=== PATIENT | female | born 1990 | race African-American/Black ===

== ENCOUNTER 2022-01-17 07:45 | Emergency (ER) | payer MEDICAID, SELFPAY ==
[2022-01-17] VITALS (12 sets, daily range): BP systolic 118–179; BP diastolic 78–106; PULSE 79–127; RESP 16–20; TEMP 36.2–36.5; O2SAT 96–99; BMI 37.3
--- NOTE | 2022-01-17 08:05 | EX.ED.VIS.PS ---
HPI HPI - Psych History of Present Illness Chief Complaint: Mental Health Narrative Narrative: 31-year-old female brought in by [employer] police, pink slipped, secondary to psychosis and inability to care for self. They found her wandering around outside in a T-shirt and 30 degree weather. She states that someone was trying to harm her and her friend, but her friend ran away. Police report that they called her mother who has not seen her in a week. Reportedly, in discussion with police, patient is known to have schizophrenia and manic episodes. History and physical is limited secondary to her neida and psychosis. She denies any suicidal ideation or homicidal ideation. She is paranoid and thinks that someone is out to harm her and kill her. [facility] Medical History Neida Allergy/AdvReac Type Severity Reaction Status Date / Time No Known Allergies Allergy Verified 01/17/22 07:57 Social History Smoking Status: Current every day smoker tobacco type: cigarettes ROS ROS ED ROS Narrative Mildly limited secondary to psychosis. Constitutional: No fever, no chills. HEENT: No sore throat. No neck pain. No loss of vision. No rhinorrhea. Cardiovascular: No chest pain. No palpitations. No pedal edema. Respiratory: No cough, no shortness of breath. Abdominal: No abdominal pain. No nausea. No vomiting. Genitourinary: No dysuria. No hematuria. Musculoskeletal: No myalgias. No arthralgias. Neurologic: No headaches. No dizziness. No lightheadedness. Skin: No rash. No change in color. Psychiatric: No depression. No anxiety. Denies suicidal ideation or homicidal ideation. Thinks someone named [place] is trying to hurt her and kill her and her friend. EXAM Physical Exam Narrative Exam Narrative: Afebrile. Vital signs noted. HEENT: Normocephalic. Atraumatic. PERRL, EOMI. Neck soft and supple. No point tenderness or step off. Chapped lips. Cardiovascular: Regular rate and rhythm. No murmurs, rubs, or gallops appreciated. Respiratory: No tachypnea. Lungs clear to auscultation bilaterally. Gastrointestinal: Abdomen soft, nontender, with normoactive bowel sounds. No rebound or guarding. Neurological: Awake. Alert. Nonfocal, nonlateralizing. Skin: No rash. Normal color. No pallor. Musculoskeletal: No pedal edema. Full range of motion extremities. Psychiatric: Mild neida. Flight of ideas. No suicidal ideation. Const Vital Signs: 01/17/22 07:48 01/17/22 08:48 01/17/22 09:03 Temperature 97.1 F L Temperature Source Temporal Pulse Rate 127 H Respiratory Rate 20 H 16 18 Blood Pressure 154/106 H Blood Pressure Mean 122 Pulse Ox 99 Oxygen Delivery Method Room Air 01/17/22 10:00 01/17/22 11:09 01/17/22 12:15 Temperature Temperature Source Pulse Rate 110 H Respiratory Rate 16 18 16 Blood Pressure 128/96 H Blood Pressure Mean 106 Pulse Ox 96 Oxygen Delivery Method Room Air 01/17/22 13:47 Temperature Temperature Source Pulse Rate 79 Respiratory Rate 16 Blood Pressure 179/86 H Blood Pressure Mean 117 Pulse Ox 96 Oxygen Delivery Method Room Air MDM MDM MDM Narrative Medical decision making narrative: Medical clearance labs were obtained. Police felt that she is unable to care for herself as she is wandering around outside without a coat in below freezing weather. Medical screening labs are remarkable for hemoglobin of 11.9, WBC count of 15 which I think is nonspecific. Potassium slightly low at 3.0. This will be replaced orally. Creatinine slightly elevated at 1.17 with a normal BUN of 8. LFTs show an AST of 38 and an ALT of 78. Ethyl alcohol is negative at less than 3. Urine test is negative. Urine for drugs of abuse positive for amphetamines, MDMA, and cannabinoids. Patient was acutely psychotic and required Geodon 20 mg intramuscularly after her analysis by crisis who agreed that the patient requires placement for her acute psychosis and paranoia. She is currently pending placement in a psychiatric facility. Patient has been accepted at [facility]. She will be transferred there. Patient is in stable condition. Lab Data Attestation: I reviewed the patient's lab results. Labs: Laboratory Results - last 24 hr 01/17/22 01/17/22 01/17/22 08:25 08:25 08:25 WBC 15.0 H RBC 5.23 Hgb 11.9 L Hct 37.3 MCV 71.3 L MCH 22.8 L MCHC 31.9 L RDW Std Deviation 36.3 RDW Coeff of Ammy 14.5 Plt Count 383 MPV 12.4 H Immature Gran % (Auto) 0.400 Neut % (Auto) 78.3 H Lymph % (Auto) 13.0 L [place] % (Auto) 7.5 Eos % (Auto) 0.5 Baso % (Auto) 0.3 Absolute Neuts (auto) 11.8 H Absolute Lymphs (auto) 1.95 Nucleated RBC % 0 Sodium 138 Potassium 3.0 L Chloride 104 Carbon Dioxide 24.0 Anion Gap 10 BUN 8 Creatinine 1.17 H Estim Creat Clear Calc 74.14 Est GFR (MDRD) Af Amer 70 Est GFR (MDRD) Non-Af 58 L BUN/Creatinine Ratio 6.8 L Glucose 146 H Calcium 9.7 Total Bilirubin 0.80 AST 38 H ALT 78 H Alkaline Phosphatase 125 H Total Protein 8.9 H Albumin 3.9 Globulin 5.0 H Albumin/Globulin Ratio 0.8 L Urine Test Urine Opiates Screen Urine Methadone Screen Ur Barbiturates Screen Ur Phencyclidine Scrn Ur Amphetamines Screen MDMA (Ecstasy) Screen U Benzodiazepines Scrn Urine Cocaine Screen U Cannabinoids Screen Ur Drug Screen Comment Ethyl Alcohol < 3.0 01/17/22 01/17/22 09:55 09:55 WBC RBC Hgb Hct MCV MCH MCHC RDW Std Deviation RDW Coeff of Ammy Plt Count MPV Immature Gran % (Auto) Neut % (Auto) Lymph % (Auto) [place] % (Auto) Eos % (Auto) Baso % (Auto) Absolute Neuts (auto) Absolute Lymphs (auto) Nucleated RBC % Sodium Potassium Chloride Carbon Dioxide Anion Gap BUN Creatinine Estim Creat Clear Calc Est GFR (MDRD) Af Amer Est GFR (MDRD) Non-Af BUN/Creatinine Ratio Glucose Calcium Total Bilirubin AST ALT Alkaline Phosphatase Total Protein Albumin Globulin Albumin/Globulin Ratio Urine Test Negative Urine Opiates Screen NEGATIVE Urine Methadone Screen NEGATIVE Ur Barbiturates Screen NEGATIVE Ur Phencyclidine Scrn NEGATIVE Ur Amphetamines Screen POSITIVE H MDMA (Ecstasy) Screen POSITIVE H U Benzodiazepines Scrn NEGATIVE Urine Cocaine Screen NEGATIVE U Cannabinoids Screen POSITIVE H Ur Drug Screen Comment Ethyl Alcohol Discharge Plan Triage Chief Complaint: Mental Health ED Provider: Gavin Pak Dx/Rx/DC Orders Clinical Impression: Psychosis, Paranoia, Hypokalemia Primary Care Provider: Care Physician,No Primary Referrals: NOT,DEFINED [Non-Staff] - Disposition Disposition: Psychiatric Hospital or Unit Discharge Location: [facility]
[2022-01-17 08:32] LABS: Absolute Lymphocyte Count 1.95 X10^3/uL (0.83-4.51); Absolute Neutrophil Count 11.8 X10^3/uL (2.0-7.7); Basophil# 0.04 X10^3/uL; Basophil% 0.3 % (0-1); Eosinophil# 0.07 X10^3/uL; Eosinophils% 0.5 % (0-5); Hematocrit 37.3 % (37-47); Hemoglobin 11.9 g/dL (12.0-15.0); Lymphocyte # 1.95 X10^3/ul (0.83-4.51); Mean Corp Hgb Conc 31.9 g/dL (32-36); Mean Corpuscular Hgb 22.8 pg (27.0-32.0); Mean Corpuscular Volume 71.3 fL (81-99); Mean Platelet Vol. 12.4 fl (6.2-12.0); Monocyte# 1.13 X10^3/uL; Monocyte% 7.5 % (0-10); NRBC Flagged by Analyzer 0 % (0-5); Neutrophil # 11.76 X10^3/uL (2.7-7.7); Neutrophil % 78.3 % (47-70); Platelet Count 383 K/mm3 (150-450); RBC Distribution Width CV 14.5 % (11.6-14.6); RBC Distribution Width SD 36.3 fl (35.1-43.9); Red Blood Count 5.23 M/mm3 (4.2-5.4)
[2022-01-17 08:49] LABS: ALB/GLOB Ratio 0.8 RATIO (0.9-2.4); AST(SGOT) 38 U/L (15-37); Alanine Aminotransfer ALT/SGPT 78 U/L (13-56); Albumin, Serum 3.9 g/dL (3.2-5.0); Alkaline Phosphatase 125 U/L (45-117); Anion Gap 10 (5-15); BUN 8 mg/dL (7-18); BUN/Creat Ratio 6.8 RATIO (10-20); Calcium,Total 9.7 mg/dL (8.5-10.1); Chloride 104 mmol/L (98-107); Creatinine, Serum 1.17 mg/dL (0.55-1.02); EST Glomerular Filtration Rate 58 mL/min (>60); Est Glom Filt Rate - Afr Amer 70 mL/min (>60); Estimated Creatinine Clearance 74.14 ml/min; Glucose 146 mg/dL (74-106); Protein, Total 8.9 g/dL (6.4-8.2); Sodium Level 138 mmol/L (136-145)
--- NOTE | 2022-01-17 09:01 | ED.RN ---
PT AGITATED. SITTING IN BED RESTLESSLY MOVING ARMS AND LEGS AROUND. PT SHOUTING TO A MAN IN HER ROOM. AND TALKING WITH PEOPLE WHO ARE NOT PRESENT. PT GIVEN WATER TO DRINK, MEAL TRAY OFFERED BUT PT REPORTS THAT SHE IS NOT HUNGRY.
[2022-01-17 09:04] LABS: Alcohol, Blood (Medical)-Serum < 3.0 mg/dL
--- NOTE | 2022-01-17 10:00 | ED.RN ---
PT REPORTS, I HAVE A SHY BLADDER. SHE ATTEMPTS A URINE SAMPLE BUT IS UNSUCCESSFUL. PT REQUESTS TO BE STRAIGHT CATHED. PT PLACED IN GOWN STRAIGHT CATH COMPLETED. URINE SAMPLE PENDING.
[2022-01-17 10:13] LABS: Internal QC Validated? YES +Cl - CLEAR BKGD; Pregnancy, Urine Negative Negative
[2022-01-17] MEDS: Ziprasidone IM 20 MG/ML VIAL IM (10:36)
[2022-01-17 10:38] LABS: Amphetamine Urine VISTA POSITIVE (<1000 ng/mL); Barbiturate Urine VISTA NEGATIVE (< 200 ng/mL); Benzodiazepine Urine VISTA NEGATIVE (< 200 ng/mL); Cocaine Urine VISTA NEGATIVE (< 300 ng/mL); Ecstacy Urine VISTA POSITIVE (< 500 ng/mL); Methadone Urine VISTA NEGATIVE (< 300 ng/mL); PCP Urine VISTA NEGATIVE (< 25 ng/mL); THC Urine VISTA POSITIVE (< 50 ng/mL); Vista UDS pH Range 5
--- NOTE | 2022-01-17 10:58 | ED.RN ---
PT GIVEN JULITA, CONTINUES TO SHOUT AND TALK TO NON VISIBLE BEINGS IN ROOM.
[2022-01-17] MEDS: Potassium Chloride Oral Tablet 20 MEQ 60 MEQ PO (15:24)
--- NOTE | 2022-01-17 16:33 | NURSING ---
CALLED [facility], ETA IS NOW 1533
--- NOTE | 2022-01-17 17:55 | NURSING ---
CALLED [facility], ETA IS ANOTHER 15 MIN
== END 2022-01-17 18:38 ==
PROVIDERS: Emergency Provider Emergency Medicine; Visit Provider Emergency Medicine
DX: F29 Unspecified psychosis not due to a substance or known physiological condition (principal); F20.9 Schizophrenia, unspecified; F17.210 Nicotine dependence, cigarettes, uncomplicated; E87.6 Hypokalemia; Z20.822 Contact with and (suspected) exposure to COVID-19
CPT/HCPCS: 80053; 80307; 81025; 82077; 85025; 87811; 96372; 99284; J3486

== ENCOUNTER 2023-01-22 01:00 | Outpatient (CLI) | payer BC, MEDICAID, SELFPAY ==
[2023-01-22 01:30] VITALS: BMI 50.3
[2023-01-22 01:41] VITALS: O2SAT 94
[2023-01-22 01:42] VITALS: BP 129/68; PULSE 100; TEMP 36.7
[2023-01-22 01:47] VITALS: PULSE 94; O2SAT 96
[2023-01-22 02:24] LABS: Color, Urine Yellow (Yellow); Glucose, Dipstick Normal (Normal); Ketone-Dipstick Negative (Negative); Leukocyte Esterase-Dipstick Negative /ul (Negative); Nitrite-Dipstick Negative (Negative); Occult Blood-Urine Negative /ul (Negative); Protein-Dipstick 30 mg/dl (Negative); Specific Gravity, Urine 1.025 (1.002-1.030); Urine Bilirubin Dipstick Negative (Negative); Urine Clarity Clear (Clear); Urine Urobilinogen Normal (Normal)
[2023-01-22 02:42] LABS: ROM Internal Control Test YES-OK TO RESULT pt. (Internal QC); ROM Patient Test Negative (Negative); Record Kit Lot#, ROM+ K1374
[2023-01-22 02:56] VITALS: PULSE 90
--- NOTE | 2023-01-22 03:15 | NURSING ---
Pt taken to [facility] ER for shortness of breath with support person. Report given to HOME CARE SPECIALIST and pt settled into room.
--- NOTE | 2023-01-25 14:08 | OB.TRI.NOTE ---
HPI - General General Date of Admission: 01/23/23 Date of Service: 01/23/23 Chief Complaint: Low Back Pain and Shortness of Breath HPI Narrative JESUS YODER, is a 32 F G1, P0 with an EDC of 04/24/2023 at 26 weeks 6 days gestation who presents to labor and delivery with complaints of shortness of breath back pain lower abdominal pain and a clear white discharge. Patient is morbidly obese. Medical problems include gestational diabetes asthma use with inhaler, HPV schizophrenia. Patient had a previous manic episode and came to the ER. Patient reports she has been out of insulin for about 2 to weeks and her blood sugar at home was 230. On L and D no contractions were palpated and rupture of membrane test was sent and was negative. heart tones were present and reassuring. Patient sees a doctor in [place] and plans to deliver in [place]. She is from the [facility] visiting family. [facility] Medical History Asthma HPV in female Hx of drug abuse Adriana Schizophrenia Home Medications albuterol 90 mcg/actuation aerosol inhaler mcg inhalation asthma 01/22/23 [History Last Taken 01/21/23 11:00] aspirin 81 mg capsule 81 mg PO DAILY 01/22/23 [History Last Taken 01/20/23] insulin aspart U-100 100 unit/mL (3 mL) subcutaneous pen (Novolog FlexPen U-100 Insulin aspart) 8 unit subcut TID gest dm 01/22/23 [History Last Taken 01/21/23 17:00] insulin detemir U-100 100 unit/mL (3 mL) subcutaneous pen (Levemir FlexPen) See Rx Instructions .Route .COMPLEX #15 mL 01/22/23 [Rx Last Taken Unknown] prednisone 20 mg tablet 40 mg (2 x 20 mg) PO DAILY #10 TABLETS 01/22/23 [Rx Last Taken Unknown] vit no.95-ferrous fumarate 28 mg-folic acid 800 mcg tablet () 1 tab PO DAILY 01/22/23 [History Last Taken 01/21/23 09:00] Allergy/AdvReac Type Severity Reaction Status Date / Time nut - unspecified Allergy Mild Swelling Verified 01/22/23 03:17 Social History Smoking Status: Current every day smoker tobacco type: cigarettes NST FHR Rate Baby A NST Reactive:: Appropriate for gestational age Assessment & Plan (1) Hyperglycemia due to diabetes mellitus: PLAN: 26+ week intrauterine with low back pain and multiple medical and obstetrical problems including gestational diabetes. Noncompliant with medications. Some shortness of breath but pulse oximeter was normal. No evidence of rupture of membranes and heart tones are reassuring. No evidence of labor. No evidence of ketoacidosis. Patient to go to labor delivery if her shortness of breath is severe otherwise with normal blood oxygen saturation she is to follow-up with her usual high risk doctor in [place] this week. (2) Second trimester :
== END 2023-01-22 03:00 | disposition home or self-care (01) ==
LOC: WPOUT 01:22 → WP 01:22
PROVIDERS: Referring Provider Obstetrics & Gynecology; Visit Provider Obstetrics & Gynecology
DX: O24.429 Gestational diabetes mellitus in childbirth, unspecified control (principal); F20.9 Schizophrenia, unspecified; E66.01 Morbid (severe) obesity due to excess calories; O99.212 Obesity complicating pregnancy, second trimester; O99.342 Other mental disorders complicating pregnancy, second trimester; O99.332 Smoking (tobacco) complicating pregnancy, second trimester; Z3A.26 26 weeks gestation of pregnancy; F17.210 Nicotine dependence, cigarettes, uncomplicated; Z79.82 Long term (current) use of aspirin
CPT/HCPCS: 59025; 59050; 81002; 84112; 99221; G0378

== ENCOUNTER 2023-01-22 03:15 | Emergency (ER) | payer BC, MEDICAID, SELFPAY ==
[2023-01-22 03:17] VITALS: BP 130/73; PULSE 102; RESP 19; TEMP 36.4; O2SAT 95; BMI 50.3
[2023-01-22 03:22] VITALS: O2SAT 95
[2023-01-22 03:31] VITALS: BP 119/85; PULSE 97; RESP 18; O2SAT 96
--- NOTE | 2023-01-22 04:20 | EDS_ITS ---
HPI History of Present Illness Chief Complaint: Shortness of Breath Informant: patient and spouse/S.O. Narrative Narrative: 32-year-old female 26 weeks G1, P0 presenting here for 3 days of what feels like a flareup of her asthma. She states she gets frequent exacerbations since she was young, recently she has had a cough but no fevers, chills, no sputum production. Albuterol has been used increased frequency recently, with partial improvement but this past day it has really not been helping. She denies any pleuritic chest pains or leg pain or swelling recently. No history of DVT or PE. She states that has been lots of wheezing and some mild chest tightness. She was checked by OB prior to being sent here, she has been having some back pains and pelvic pains, states that she is following with OB in [place] but she currently is in [place] with family, went to their ER for all of this and was told to come here because of the OB unit here. She has been having no vaginal bleeding lately and currently having no abdominal pain. Additionally, patient states her blood sugars have been in the 200s lately because she has been out of her long-acting insulin. This has been for maybe 2 weeks. She is asking for refill. She has a short acting and has been temporizing using a little more of that than usual. [facility] Medical History Asthma HPV in female Hx of drug abuse Adriana Schizophrenia Home Medications albuterol 90 mcg/actuation aerosol inhaler mcg inhalation asthma 01/22/23 [History Last Taken 01/21/23 11:00] aspirin 81 mg capsule 81 mg PO DAILY 01/22/23 [History Last Taken 01/20/23] insulin aspart U-100 100 unit/mL (3 mL) subcutaneous pen (Novolog FlexPen U-100 Insulin aspart) 8 unit subcut TID gest dm 01/22/23 [History Last Taken 01/21/23 17:00] insulin detemir U-100 100 unit/mL (3 mL) subcutaneous pen (Levemir FlexPen) See Rx Instructions .Route .COMPLEX #15 mL 01/22/23 [Rx Last Taken Unknown] prednisone 20 mg tablet 40 mg (2 x 20 mg) PO DAILY #10 TABLETS 01/22/23 [Rx Last Taken Unknown] vit no.95-ferrous fumarate 28 mg-folic acid 800 mcg tablet () 1 tab PO DAILY 01/22/23 [History Last Taken 01/21/23 09:00] Allergy/AdvReac Type Severity Reaction Status Date / Time nut - unspecified Allergy Mild Swelling Verified 01/22/23 03:17 Social History Smoking Status: Current every day smoker tobacco type: cigarettes ROS ROS ED Constitutional Constitutional ED: Denies chills or fever(s) Eyes Eyes: Denies change in vision or diplopia ENT ENT ED: Denies rhinorrhea or sore throat Cardiovascular Cardiovascular: Denies chest pain or palpitations Respiratory/Chest Respiratory/Chest: Reports chest tightness, cough, dyspnea and wheezing; Denies sputum Gastrointestinal Gastrointestinal: Denies abdominal pain, diarrhea, nausea or vomiting Genitourinary Genitourinary ED: Denies dysuria or hematuria Musculoskeletal Musculoskeletal: Reports back pain; Denies neck pain Integumentary Denies abscess or rash Neurologic Neurologic: Denies headache(s), paresthesias or weakness Psychiatric Psychiatric: Denies anxiety or suicidal thoughts EXAM Physical Exam Const Vital Signs: 01/22/23 03:17 01/22/23 03:22 Temperature 97.6 F L Temperature Source Temporal Pulse Rate 102 H Respiratory Rate 19 H Respiratory Effort Normal Non-Labored Respiratory Depth Normal Respiratory Pattern Normal Blood Pressure 130/73 H Blood Pressure Mean 92 Pulse Ox 95 Oxygen Delivery Method Room Air Room Air Positive well nourished, well developed and obese General Appearance ED: well developed and NAD Nutritional Appearance: obese HEENT Reports moist mucous membranes normocephalic and atraumatic Eyes PERRL and EOMs intact bilaterally Neck full ROM and supple Resp normal respiratory effort Resp Narrative: Mild inspiratory wheezes at the end of inspiration, otherwise clear Effort and Inspection: able to speak in complete sentences Cardio regular rate, regular rhythm and no murmurs GI non-tender and non-distended Auscultation: normoactive bowel sounds Palpation: soft Back/Spine no CVA tenderness General Back: other FROM Extremity normal to inspection General Extremety ED: Negative for edema, pulses abnormal or tenderness General Extremity: Negative for edema or pulses abnormal Neuro oriented x3, CN's II-XII intact bilaterally and no sensory deficits noted Sensorium / Orientation: awake and alert Motor Exam: strength 5/5 throughout Skin no rashes or lesions noted and no wounds MDM MDM MDM Narrative Medical decision making narrative: Patient's vital signs are normal. I am not concerned about pneumonia here and I do not think she needs COVID influenza swabs. She is given some prednisone and prescription for some as well as a prescription for refill of her Levemir, she states that she takes 32 units in the morning and 52 at night. She is advised that taking the prednisone may make it more difficult to control her blood sugars, and to adjust accordingly. Follow-up advised. Discharge Plan Triage Chief Complaint: Shortness of Breath ED Provider: Jeanmarie Clemente Dx/Rx/DC Orders Clinical Impression: Hyperglycemia due to diabetes mellitus, Encounter for medication refill, Acute asthma exacerbation, Second trimester Instructions: Asthma Prescriptions: New prednisone 20 mg tablet 40 mg PO DAILY Qty: 10 0RF Continued PNV cmb#95-ferrous fumarate-FA [] 28 mg iron- 800 mcg tablet 1 tab PO DAILY aspirin 81 mg capsule 81 mg PO DAILY insulin aspart U-100 [Novolog FlexPen U-100 Insulin] 100 unit/mL (3 mL) insulin pen 8 unit subcut TID albuterol 90 mcg/actuation aerosol inhalation Changed Levemir FlexPen 100 unit/mL (3 mL) insulin pen See Rx Instructions .ROUTE .COMPLEX Qty: 15 0RF Rx Instructions: 32 units SQ qAM, 52 units SQ qhs Primary Care Provider: Care Physician,No Primary Referrals: Doctor,Your [Non-Staff] - 3-5 Days if not improving Activity Restrictions/Additional Instructions: Prednisone may make your blood sugars go up, so adjust your fast acting insulin accordingly. If your blood sugars go over 400 discontinue the prednisone. Disposition Disposition: Home, Self Care Discharge Date/Time: 01/22/23 04:32
[2023-01-22] MEDS: predniSONE 20 MG Tablet 40 MG PO (04:28)
== END 2023-01-22 04:32 | disposition home or self-care (01) ==
PROVIDERS: Emergency Provider Emergency Medicine; Referring Provider Emergency Medicine; Visit Provider Emergency Medicine
DX: O24.112 Pre-existing type 2 diabetes mellitus, in pregnancy, second trimester (principal); E11.65 Type 2 diabetes mellitus with hyperglycemia; O99.512 Diseases of the respiratory system complicating pregnancy, second trimester; O99.332 Smoking (tobacco) complicating pregnancy, second trimester; F17.210 Nicotine dependence, cigarettes, uncomplicated; J45.901 Unspecified asthma with (acute) exacerbation; O99.212 Obesity complicating pregnancy, second trimester; Z79.82 Long term (current) use of aspirin; Z3A.26 26 weeks gestation of pregnancy; Z76.0 Encounter for issue of repeat prescription
CPT/HCPCS: 99282

== ENCOUNTER 2023-02-14 03:50 | Outpatient (CLI) | payer BC, MEDICAID, SELFPAY ==
[2023-02-14 04:06] VITALS: PULSE 77; O2SAT 97
[2023-02-14 04:11] VITALS: PULSE 85; O2SAT 97
[2023-02-14 04:13] VITALS: O2SAT 94
[2023-02-14 04:14] VITALS: BP 127/67; PULSE 82
[2023-02-14 04:16] VITALS: PULSE 98; O2SAT 97
[2023-02-14 04:17] VITALS: BMI 49.4
[2023-02-14 04:42] VITALS: TEMP 36.6
[2023-02-14 04:53] LABS: Bedside Glucose 172 mg/dL (74-106)
[2023-02-14 05:00] LABS: Bacteria 0 SEEN /hpf (None Seen); Mucous, Urine 0 SEEN /hpf (<or=2+); Red Blood Cells-Urine 0 SEEN /hpf (0-5); White Blood Cells 0 SEEN /hpf (0-5)
[2023-02-14 05:03] LABS: Color, Urine Yellow (Yellow); Glucose, Dipstick 1000 mg/dl (Normal); Ketone-Dipstick 5 mg/dl (Negative); Leukocyte Esterase-Dipstick Negative /ul (Negative); Nitrite-Dipstick Negative (Negative); Occult Blood-Urine Negative /ul (Negative); Protein-Dipstick 15 mg/dl (Negative); Urine Bilirubin Dipstick Negative (Negative); Urine Clarity Clear (Clear); Urine Urobilinogen Normal (Normal)
[2023-02-14 05:15] LABS: Squamous Epithelial Cells - UA 5-10 SEEN /hpf (5-10)
--- NOTE | 2023-02-25 10:08 | OB.TRI.HP_ITS ---
HPI - General General Date of Service: 02/14/23 HPI Narrative JESUS YODER, is a 32 F who presents with cramping. Maternal Data Information Final KHAI: 04/24/23 Gestational age: 30&1 PFSH [facility] Medical History Asthma HPV in female Hx of drug abuse Adriana Schizophrenia Home Medications albuterol 90 mcg/actuation aerosol inhaler mcg inhalation asthma 01/22/23 [History Last Taken 01/21/23 11:00] aspirin 81 mg capsule 81 mg PO DAILY 01/22/23 [History Last Taken 01/20/23] insulin aspart U-100 100 unit/mL (3 mL) subcutaneous pen (Novolog FlexPen U-100 Insulin aspart) 8 unit subcut TID gest dm 01/22/23 [History Last Taken 02/13/23] prednisone 20 mg tablet 40 mg (2 x 20 mg) PO DAILY #10 TABLETS 01/22/23 [Rx Last Taken Unknown] vit no.95-ferrous fumarate 28 mg-folic acid 800 mcg tablet () 1 tab PO DAILY 01/22/23 [History Last Taken 02/14/23] insulin detemir U-100 100 unit/mL (3 mL) subcutaneous pen (Levemir FlexPen) See Rx Instructions .Route .COMPLEX 02/14/23 [History Last Taken 02/13/23] Allergy/AdvReac Type Severity Reaction Status Date / Time nut - unspecified Allergy Mild Swelling Verified 02/14/23 04:14 Social History Smoking Status: Current every day smoker tobacco type: cigarettes NST FHR Rate Baby A Baseline: 145 Variability:: Moderate Accelerations:: 15 x 15 Decelerations:: Variable NST Reactive:: Yes Uterine Activity:: quiet Assessment & Plan (1) Diabetes with : QUALIFIERS: Diabetes in type: pre-existing, type 2 Trimester: third trimester Qualified Code(s): O24.113 - Pre-existing type 2 diabetes mellitus, in , third trimester (2) Cramping affecting , antepartum: PLAN: Plan Reactive NST [facility] [place]
== END 2023-02-14 05:50 | disposition home or self-care (01) ==
LOC: WPOUT 03:56 → WP 03:57
PROVIDERS: Visit Provider Obstetrics & Gynecology
DX: O99.891 Other specified diseases and conditions complicating pregnancy (principal); Z79.4 Long term (current) use of insulin; O24.113 Pre-existing type 2 diabetes mellitus, in pregnancy, third trimester; O36.8330 Maternal care for abnormalities of the fetal heart rate or rhythm, third trimester, not applicable or unspecified; Z79.82 Long term (current) use of aspirin; O99.333 Smoking (tobacco) complicating pregnancy, third trimester; F17.210 Nicotine dependence, cigarettes, uncomplicated; Z3A.30 30 weeks gestation of pregnancy
CPT/HCPCS: 59025; 59050; 81001; 82962; 99221; G0378